=== PATIENT | female | born 1975 ===

== ENCOUNTER 2018-01-30 05:11 | Inpatient (IN) | payer OTHER ==
[~2018-01-30] VITALS: Ht 177.8 cm; Wt 106.6 kg
[2018-01-30] VITALS (14 sets, daily range): BP systolic 101–153; BP diastolic 55–77
[2018-01-30] MEDS ORDERED: NORCO 10-325 T1 EACH ORAL (05:54)
[2018-01-30] MEDS ORDERED: CYCLOBENZAPRINE10 MG ORAL (05:54)
[2018-01-30] MEDS ORDERED: GABAPENTIN300 MG ORAL (05:54)
[2018-01-30] MEDS ORDERED: LR 1000ml 1,000 ML IVLG SCH (06:21)
--- NOTE | 2018-01-30 06:23 | Anethesia Preoperative Eval ---
Anesthesia Pre-op PMH/ROS General Date of Evaluation: Jan 30, 2018 Time of Evaluation: 07:26 Anesthesiologist: Queenie ASA Score: ASA 2 Mallampati Score Class I : Soft palate, uvula, fauces, pillars visible Class II: Soft palate, uvula, fauces visible Class III: Soft palate, base of uvula visible Class IV: Only hard plate visible Mallampati Classification: Class II Surgeon: Newton Diagnosis: Back Pain Surgical Procedure: TLIF L5-S1 Anesthesia History: none Family History: no anesthesia problems Allergies: Coded Allergies: No Known Allergies (Unverified , 01/28/18) Medications: see eMAR Patient NPO?: Yes NPO Date: Jan 29, 2018 NPO Time: 2129 Past Medical History Gastrointestinal/Genitourinary: Reports: GERD Other: obesity - BMI 36 PSxH Narrative: C/S, Gastric Sleeve Anesthesia Pre-op Phys. Exam Physician Exam Vital Signs Date Time Temp Pulse Resp B/P (MAP) Pulse Ox O2 Delivery O2 Flow Rate FiO2 01/30/18 05:55 Room Air 01/30/18 06:28 97.2 59 20 104/55 (71) 100 Last Vital Signs Date Time Temp Pulse Resp B/P (MAP) Pulse Ox O2 Delivery O2 Flow Rate FiO2 01/30/18 05:55 Room Air Constitutional: NAD Neurologic: CN 2-12 intact Cardiovascular: RRR Respiratory: CTA Gastrointestinal: S/NT/ND Airway Exam Mallampati Score: Class II MO: full ROM: full Teeth: intact Anesthesia Pre-op A/P Labs Urine Test Test 01/30/18 05:25 Urine HCG, Qualitative Negative (NEGATIVE) Risk Assessment & Plan Assessment: ASA 2 Plan: GA, SED, GlideScope Go Status Change Before Surgery: No Pre-Antibiotics Dru Gram Vancomycin IV Given Within 1 Hr of Incision: Yes Time Given: 07:41 Juan Jerome MD Jan 30, 2018 06:23
[2018-01-30] MEDS ORDERED: Pantoprazole Inj ONE (06:28)
[2018-01-30] MEDS ORDERED: Vancomycin 1gm inj IVPB ONE ×2 (06:28→10:07)
[2018-01-30] MEDS ORDERED: Zemuron 50mg/5ml Inj IV ONE (06:29)
[2018-01-30] MEDS ORDERED: Atropine Sulfate 0.4mg/ml inj IVP PRN (06:30)
[2018-01-30] MEDS ORDERED: Hydromorphone 0.5mg/0.5ml inj IVP PRN (06:30)
[2018-01-30] MEDS ORDERED: oxyCODONE HCL/Acetaminophen 5/325mg ORAL PRN (06:30)
[2018-01-30] MEDS ORDERED: Meperidine 50mg/ml Inj(FOR RIGORS ONLY) IVP PRN (06:30)
[2018-01-30] MEDS ORDERED: HYDROcodone/Acetamin 7.5/325 tab ORAL PRN (06:30)
[2018-01-30] MEDS ORDERED: Ketorolac 30mg Inj IV PRN ×2 (06:30)
[2018-01-30] MEDS ORDERED: Norco 5mg/325mg tab ORAL PRN ×2 (06:30→13:00)
[2018-01-30] MEDS ORDERED: Midazolam 2mg/2ml Inj IVP PRN (06:30)
[2018-01-30] MEDS ORDERED: DiphenhydrAMINE 50mg/ml Inj IVP PRN (06:30)
[2018-01-30] MEDS ORDERED: fentaNYL 100 mcg/2 mL IV PRN (06:30)
[2018-01-30] MEDS ORDERED: Metoclopramide 10mg/2ml Inj IVP PRN (06:30)
[2018-01-30] MEDS ORDERED: LORazepam Inj 2mg/ml 1ml IV PRN (06:30)
[2018-01-30] MEDS ORDERED: Acetaminophen (Non formulary) 100 ML IV ONE (06:30)
[2018-01-30] MEDS ORDERED: Lidocaine 1% MPF 10mg/ml 5ml ONE ×2 (06:54→11:22)
[2018-01-30] MEDS ORDERED: Dexamethasone 4mg/ml vial ONE ×2 (06:54→08:09)
[2018-01-30] MEDS ORDERED: Sodium Chloride 10ml vial INJ ONE (06:54)
[2018-01-30] MEDS ORDERED: Lidocaine 1% Plain 30 ml INJ ONE ×2 (06:57→09:24)
[2018-01-30] MEDS ORDERED: Propofol 1,000mg/ 100ml btl IV ONE (07:00)
[2018-01-30] MEDS ORDERED: fentaNYL 100 mcg/2 mL IV ONE ×3 (07:02→11:10)
[2018-01-30] MEDS ORDERED: Heparin 5000 units/ml inj ONE (07:04)
[2018-01-30] MEDS ORDERED: Bacitracin Oint 15gm Tube TOPIC ONE (07:04)
[2018-01-30] MEDS ORDERED: Heparin 1000 units/ml 1ml Vial ONE (07:04)
[2018-01-30] MEDS ORDERED: Thrombin 5000 units spray kit TOPIC ONE (07:04)
[2018-01-30] MEDS ORDERED: Gelfoam Size TOPIC ONE (07:05)
[2018-01-30] MEDS ORDERED: Thrombin 5000 units TOPIC ONE ×2 (07:05→07:06)
[2018-01-30] MEDS ORDERED: Bupivacaine w/Epi 0.5% 30ml Vial INJ ONE ×2 (07:05→07:06)
[2018-01-30] MEDS ORDERED: Bacitracin 50000 Units Vial ONE ×2 (07:05→10:07)
[2018-01-30] MEDS ORDERED: Gelfoam Absorbable 1gm powder pkt TOPIC ONE (07:05)
--- NOTE | 2018-01-30 07:11 | Immediate Post-Op Evaluation ---
Immediate Post-Op Evalulation Immediate Post-Op Evalulation Procedure: TLIF L5-S1 Date of Evaluation: Jan 30, 2018 Time of Evaluation: 12:55 IV Fluids: 900 LR Blood Products: 0 Estimated Blood Loss: 100 Urinary Output: 150 Blood Pressure Systolic: 109 Blood Pressure Diastolic: 62 Pulse Rate: 69 Respiratory Rate: 16 O2 Sat by Pulse Oximetry: 96 Temperature (Fahrenheit): 97.1 Pain Score (1-10): 2 Nausea: No Vomiting: No Complications 0 Patient Status: awake, reacts, patent, extubated, none Hydration Status: adequate Dru Gram Vancomycin IV Given Within 1 Hr of Incision: Yes Time Given: 07:41 Juan Jerome MD Jan 30, 2018 07:11
[2018-01-30] MEDS ORDERED: LR 1000ml ONE (07:26)
[2018-01-30] MEDS ORDERED: Sterile Water Irrig 1000ml IRRIG ONE (07:26)
[2018-01-30] MEDS ORDERED: NS Irrig 1000ml ONE (07:26)
[2018-01-30] MEDS ORDERED: Vancomycin 1 GM in D5W 275 ML IVPB ONE (07:30)
[2018-01-30] MEDS ORDERED: Pantoprazole Inj IVP ONE (07:30)
--- NOTE | 2018-01-30 07:40 | Pre-Procedure Note/Attestation ---
Pre-Procedure Note/Attestation Complete Prior to Procedure Planned Procedure: bilateral Procedure Narrative: Posterior lumbar decompression interbody fusion and pedicle screw fixation at L5 -S1 and posterolateral arthrodesis with allograft, autograft and iliac crest bone marrow aspirate Attestation I attest that I discussed the nature of the procedure; its benefits; risks and complications; and alternatives (and the risks and benefits of such alternatives ), prior to the procedure, with the patient (or the patient's legal sales representative facility services). I attest that, if there was a reasonable possibility of needing a blood transfusion, the patient (or the patient's legal sales representative facility services) was given the [facility] standardized written summary, pursuant to the Fa[place] Blood Safety Act ([place] Health and Safety Code # 1645, as amended). I attest that I re-evaluated the patient just prior to the surgery and that there has been no change in the patient's H&P, except as documented below: Destini Glez MD Jan 30, 2018 07:40
[2018-01-30] MEDS ORDERED: Neostigmine 1mg/ml 10ml Inj ONE (11:51)
[2018-01-30] MEDS ORDERED: Glycopyrrolate 0.2mg/ml 1ml Vial ONE (11:51)
[2018-01-30] MEDS ORDERED: Naloxone 0.4mg/ml Inj ONE (11:55)
--- NOTE | 2018-01-30 12:47 | Brief Operative Note ---
Immediate Post Operative Note Operative Note Chief Complaint: Severe low ack pain and radiculopathy, HNP L5-S1 Pre-op Diagnosis: 1. S/p fall with lumbar spine trauma, left knee and lower back trauma 2. Intractable low back pain and contained extruded fragment at L5-S1 3. Lack of improvement from conservative care and and interventional injections and bariatric surgery. 4. Elevated BMI Procedure: 1. Bilateral L5 hemilaminectomy, medical facetectomy and foraminotomy. 2. Preparation of disc space with radical L5-S1 discectomy and insertion of 13 mm Renovis 3D titanium cage 3. Billateral pedicle screw insertions at L5 and S1, 6.0 x 50 mm and 6.0 by 40 mm, and 40 mm rods. 4. posterolateral arthrodesis L5-S1 basilaterally 5. [place] of local bone from lamina for grafting 6. Osteotomy of inferior L5 facet on left side and transforaminal approach for decompression of nerve root at L5-S1 6. Right iliac crest bone marrow aspiration for grafting 7. Intra-op neuromonitoring and pedicle screw stim 8. Intra-op use, supervision and interpretation of fluoroscopy for instrumentation and localization of spine. 9. Neurolysis of L5 roots with microsurgical technique. 10. Modifier 22 for difficulty of the case due to increased depth of the surgical closure and body habitus with BMI 34. 11. Plastic surgical closure of a 12 cm lumbar wound Post-op Diagnosis: same as pre-op Findings: consistent w/pre-op dx studies Surgeon: Destini Glez MD Senior Geotechnical Engineer: Sampson Nunn MD Anesthesiologist: Dr. Cassidy RENTERIA Anesthesia: general Specimen: yes - disc Complications: none Condition: stable Fluids: 800 cc Estimated Blood Loss: volume - 100 cc Drains: hemovac Implant(s) used?: Yes - U & I pedicle screws and rods, Renovis cage. Destini Marin MD Jan 30, 2018 12:47
[2018-01-30] MEDS ORDERED: Milk of Magnesia 30ml Ud ORAL PRN (13:00)
[2018-01-30] MEDS ORDERED: traMADol 50mg tab ORAL PRN (13:00)
[2018-01-30] MEDS ORDERED: Cyclobenzaprine 10mg Tab ORAL PRN (13:00)
--- NOTE | 2018-01-30 13:18 | General Progress Note ---
Progress Note Progress Note Post-op Neurosurgery S/ Comfortable no leg pain O/ Vs. Last 24 Hour Vital Signs Date Time Temp Pulse Resp B/P (MAP) Pulse Ox O2 Delivery O2 Flow Rate FiO2 01/30/18 13:00 66 16 114/66 96 Simple Mask 10 01/30/18 12:54 75 16 101/58 96 Simple Mask 10 01/30/18 12:49 75 16 101/58 96 Simple Mask 10 01/30/18 12:44 97.1 75 16 101/58 96 Simple Mask 10 01/30/18 12:44 69 16 96 01/30/18 06:28 97.2 59 20 104/55 (71) 100 01/30/18 05:55 Room Air Alert comfortable Moves all extremities well Dresssing dry Minimal output from HV Admit to floor after cleared by recovery family updated Destini Glez MD Jan 30, 2018 13:18
[2018-01-30] MEDS: NS w/KCl 20mEq 1,000 ML IV SCH (14:48)
[2018-01-30] MEDS ORDERED: HYDROmorphone 1mg/ml Carpuject IVP PRN (15:30)
[2018-01-30] MEDS ORDERED: Chloraseptic Spray 20mL Bottle ORAL PRN (15:30)
[2018-01-30] MEDS: HYDROcodone/Acetamin 7.5/325 tab ORAL PRN (15:43)
[2018-01-30] MEDS: Docusate 100mg cap ORAL SCH (17:39)
[2018-01-30] MEDS: Docusate Sod/Senna tab ORAL SCH (17:39)
--- NOTE | 2018-01-30 18:15 | Operative Note - Dictated ---
DATE OF OPERATION: 01/30/2018 PREOPERATIVE DIAGNOSES: 1. Severe intractable back pain and radiculopathy with large herniated extruded disc status post traumatic injury to the lumbar spine, status post fall with left elbow, left knee, and lumbar spine trauma. 2. Intractable severe low back pain and radiculopathy with 6 mm extruded contained disc at L5-S1 level. 3. Lack of improvement from conservative measures, medical therapy, and epidural injection. 4. Status post bariatric surgery with significant weight loss, however, with persistence of mechanical axial low back pain and discogenic back pain. 5. High BMI. BMI of 34. POSTOPERATIVE DIAGNOSES: 1. Severe intractable back pain and radiculopathy with large herniated extruded disc at status post traumatic injury to the lumbar spine, status post fall with left elbow, left knee, and lumbar spine trauma. 2. Intractable severe low back pain and radiculopathy with 6 mm extruded contained disc at L5-S1 level. 3. Lack of improvement from conservative measures, medical therapy, and epidural injection. 4. Status post bariatric surgery with significant weight loss, however, with persistence of mechanical axial low back pain and discogenic back pain. 5. High BMI. BMI of 34. PROCEDURES: 1. Bilateral L5 hemilaminectomy, medial facetectomy, and foraminotomy. 2. Inferior osteotomy and facetectomy of the left L5 facet joint with transforaminal approach to the lumbar spine with decompression of nerve root. 3. Preparation of disk space and radical diskectomy L5-S1 level, insertion of biomechanical device, 3D titanium cage, 13 mm Renovis. 4. Transpedicular fixation at L5 and S1 levels bilaterally using 6 x 50 mm and 6 x 40 mm screws and 40 mm rods. 5. Posterior lateral arthrodesis at L5-S1 level using autologous bone graft, bone marrow aspirate from the iliac crest and Zuly. 6. [place] of local bone from lamina for grafting. 7. Aspiration of bone marrow from the right iliac crest through a separate fascial incision. 8. Intraoperative neuro monitoring and pedicle screw stimulation, somatosensory evoked potential and dermatomal monitoring, free run EMG monitoring. 9. Intraoperative use, interpretation, and supervision of fluoroscopy for localization of spine and instrumentation. 10. Neurolysis of the L5 nerve roots bilaterally using microsurgical technique. 11. Plastic surgical closure of a 12 cm lumbar wound with multilayer closure including subcuticular and subdermal closure. 12. Modifier 22 due to difficulty of the case secondary to the increased depth of incision and increased difficulty due to the patient's body habitus, BMI 34. 13. Application of epidural fat graft to L5-S1 level, bilaterally. SURGEON: Destini Glez M.D. CONFLICTS ANALYST SURGEON: Sampson Nunn M.D. ANESTHESIOLOGIST: Juan Jerome M.D. ANESTHESIA TYPE: General endotracheal anesthesia. EBL: 100 mL. IV FLUIDS: 800 mL. URINE OUTPUT: 300 mL. SPECIMEN: Disc. INDICATION: The patient is a pleasant woman with intractable back pain and radiculopathy from a fall in August of 2012. Despite a wide spectrum conservative treatments, medical therapy treatments with neuropathic pain medications and interventional pain injection and bariatric surgery with significant weight loss, she continues to have severe low back pain. Imaging studies of the lumbar spine including MRI, CT scan, and x-rays were obtained. The MRI were significant for contained 6 mm disc herniation, extruded fragment at the L5-S1 level with nerve impingement concordant with the patient's complaints. Risk of the operation include, but not limited to risk of infection, bleeding, nerve damage, paralysis, spinal fluid leakage, hardware failure/pseudoarthrosis requiring revision surgery, adjacent segment disease requiring additional treatments after the operation including physical therapy, medical therapy, interventional pain injections such as lumbar facet blocks and/or rhizotomy, additional surgical intervention for adjacent segment breakdown with extension of the fusion were all discussed with the patient along with risks of anesthesia including coma and . She signed the consent to proceed. DETAILS OF PROCEDURE: The patient was identified. She was brought into the operating room on a gurney. She underwent an uneventful endotracheal intubation. Acosta catheter was inserted. Neuro monitoring leads were attached. The patient was placed on a Hector table in prone position. Care was taken to pad all pressure points from the top of the head to the tip of the toes. Arms were well padded in the elbows, shoulders, and the wrist region. The lumbar region was pre-prepped and fluoroscopic images were obtained to localize the lumbar spine in AP and lateral views. Back was then prepped and draped in sterile fashion. Time-out was observed and the circulating nurse recited the procedure. Microscope was brought to the field. Incision was made in the midline over the L5 and S1 level. Dissection was carried down to the level of the subcutaneous fascia. The fascia was opened. The deep subcutaneous fat layer was then reached and a fat specimen was used for grafting. The fat graft was placed in antibiotic irrigation. The lumbar dorsal fascia was identified. Approximately 3 cm from the midline, two parallel paramedian incisions were made into the fascia. Intramuscular approach was then created along the multifidus and longissimus muscles to the level of the L5-S1 facet joint. The longus Vee retractors were needed to reach the facet capsule and modifier 22 will be used to denote the increased degree of difficulty due to the increased depth of the surgical corridor along with the patient's large body habitus. After exposure of the L5-S1 facets bilaterally, intraoperative fluoroscopic images were obtained to verify the correct level. The facet capsule was then removed using pituitary rongeurs. Bilateral L5 hemilaminotomy, medial facetectomy, and foraminotomies were performed. The ligamentum flavum was disconnected from the inferior and medial border. Lateral recess was fully decompressed. On the right side, the nerve root was tender with epidural veins and scars. Using a bipolar cautery, the veins were coagulated and the L5 nerve root was mobilized medially by disconnecting the epidural adhesions and the epidural veins. The S1 foramina was also widened using a Kerrison punch, and S1 nerve root was mobile at the end of the decompression. Prior to the decompression, there was evidence of significant loss of signal from the left L5, which was decreased by 50% compared to the right L5 and also the right S1, which was 50% decrease in its signal and amplitude compared to the contralateral side. Somatosensory evoked potentials remained stable throughout the case. Attention was given to the left side. The left L5 hemilaminectomy, medial facetectomy, and foraminotomy was performed. Bone was harvested from the laminectomy bilaterally for future grafting. The ligament flavum was disconnected medially and inferiorly. The S1 and L5 nerve roots were identified. The epidural adhesions and epidural veins were carefully coagulated with bipolar cautery and incised with micro scissors. This allowed mobilization of the thecal sac medially and exposure of the L5-S1 disc space. There was a large contained disc fragment underneath the posterior longitudinal ligament compressing the thecal sac and the exiting L5 and traversing S1 roots. Incision was made into the anulus using a #15 blade. Large disc fragments were removed using pituitary rongeur. The cartilaginous connection to the endplates at L5 and S1 was removed using pituitary rongeur and disc andrey and curettes. A radical diskectomy was performed. A 13 mm Renovis 3D titanium cage was then sized and packed it with autologous bone graft, bone marrow aspirate, and [place] and placed into the L5-S1 interspace under fluoroscopic guidance. A Jamshidi needle was used through a separate fascial incision to withdraw 30 mL of bone marrow from the right iliac crest. A 10 mL syringes were used to withdraw the bone marrow. Between each interval of syringe use, the Jamshidi needle was advanced to approximately 1 cm prior to the harvest of bone marrow. The bone marrow harvest track was then sealed with FloSeal. The posterolateral gutters were decorticated using high-speed drill at the L5-S1 level and packed with autologous bone graft, Zuly, and bone marrow aspirate. Transpedicular fixation was performed using 50 and 40 mm screws at L5 and S1 levels respectively using 6 mm screws. Fluoroscopic guidance was used throughout this pedicle screw insertion. Pedicle screw stimulation was performed, which showed no evidence of electrical breach. The 40 mm rods were then inserted and the cross compressor was used to compress the screw heads against the implant. The 40 mm lourdes was then secured in place with set screws and appropriate torque was used. Wound was irrigated with copious amounts of antibiotic irrigation. A Hemovac drain was placed in the left intermuscular approach cavity. The fat graft obtained from the deep subcutaneous layer was then sized and placed over the laminotomy defects bilaterally, which provided excellent coverage for the laminotomy defects. The fascial layers were closed using #0 Vicryl stitches in interrupted fashion. Subcutaneous layer was closed using 2-0 and 3-0 Vicryl stitches. Subdermal and subcuticular layers were closed using 3-0 Vicryl stitches in interrupted fashion and a watertight plastic surgical manner. The skin was dressed with Dermabond and Steri-Strips. Sterile dressing was applied to the incision and the Hemovac drain was secured to the skin using Steri-Strips as well. The patient tolerated this procedure well. She was extubated at the end of the case. Complications none. Destini Glez M.D. DR: YAW JOB#: [id number] CC: RACHAEL
[2018-01-30] MEDS: Vancomycin 1 GM in D5W 275 ML IVPB SCH (20:16)
[2018-01-31] VITALS: BP 126/71
[2018-01-31] MEDS: NS w/KCl 20mEq 1,000 ML IV SCH (01:55)
[2018-01-31 04:00] VITALS: BP 125/69
[2018-01-31 07:10] LABS: BASOPHILS % (AUTO) 0.3 % (0.0-2.0); EOSINOPHILS % (AUTO) 0.2 % (0.0-3.0); HEMATOCRIT 36.1 % (37.0-47.0); HEMOGLOBIN 12.6 G/DL (12.0-16.0); LYMPHOCYTES % (AUTO) 18.3 % (20.0-45.0); MEAN CORPUSCULAR VOLUME 91 FL (80-99); MONOCYTES % (AUTO) 5.8 % (1.0-10.0); NEUTROPHILS % (AUTO) 75.4 % (45.0-75.0); PLATELET COUNT 181 K/UL (150-450); RED BLOOD COUNT 3.99 M/UL (4.20-5.40); RED CELL DISTRIBUTION WIDTH 11.1 % (11.6-14.8); WHITE BLOOD COUNT 11.1 K/UL (4.8-10.8)
[2018-01-31 07:20] LABS: ANION GAP 6 mmol/L (5-15); BLOOD UREA NITROGEN 13 mg/dL (7-18); CALCIUM 8.4 MG/DL (8.5-10.1); CARBON DIOXIDE 28 MMOL/L (21-32); CHLORIDE 106 MMOL/L (98-107); CREATININE 0.8 MG/DL (0.55-1.30); SODIUM 140 MMOL/L (136-145)
--- NOTE | 2018-01-31 07:54 | 48 Hour Post Anesthesia Eval ---
Post Anesthesia Evaluation Procedure: TLIF L5-S1 Date of Evaluation: Jan 31, 2018 Time of Evaluation: 07:52 Blood Pressure Systolic: 126 0: 72 Pulse Rate: 76 Respiratory Rate: 20 Temperature (Fahrenheit): 97.6 O2 Sat by Pulse Oximetry: 98 Airway: patent Nausea: No Vomiting: No Pain Intensity: 2 Hydration Status: adequate Cardiopulmonary Status: stable Mental Status/LOC: patient returned to baseline Follow-up Care/Observations: n/a Post-Anesthesia Complications: none Follow-up care needed: N/A Fam Fontana MD Jan 31, 2018 07:54
[2018-01-31 08:00] VITALS: BP 117/79
[2018-01-31] MEDS: Docusate Sod/Senna tab ORAL SCH ×2 (08:18→17:52)
[2018-01-31] MEDS: Docusate 100mg cap ORAL SCH ×2 (08:18→17:52)
[2018-01-31] MEDS: HYDROcodone/Acetamin 7.5/325 tab ORAL PRN ×2 (08:18→20:46)
[2018-01-31] MEDS: Vancomycin 1 GM in D5W 275 ML IVPB SCH (10:35)
[2018-01-31 11:47] VITALS: BP 108/60
--- NOTE | 2018-01-31 11:57 | Diagnostic Imaging Report ---
Indication: Back pain Comparison: None Findings: 5 fluoroscopic views of the lumbar spine were obtained. Intraoperative imaging showing localization followed by posterior instrumented fusion of L5-S1. IMPRESSION: Intraoperative imaging
[2018-01-31] MEDS ORDERED: Tubing IV Secondary IV ONE (13:48)
[2018-01-31 16:00] VITALS: BP 100/60
--- NOTE | 2018-01-31 17:32 | General Progress Note ---
Progress Note Progress Note Neurosurgery POD #1 S/ Doing well. No leg pain. Ambulated several times. Has lumbar brace. O/ vs. Last 24 Hour Vital Signs Date Time Temp Pulse Resp B/P (MAP) Pulse Ox O2 Delivery O2 Flow Rate FiO2 01/31/18 16:00 98.4 82 18 100/60 (73) 97 01/31/18 11:47 97.9 80 18 108/60 (76) 97 01/31/18 09:00 Room Air Room Air 01/31/18 08:00 97.5 100 18 117/79 (92) 97 01/31/18 07:54 76 20 98 01/31/18 04:00 97.2 79 18 125/69 (87) 97 01/31/18 00:00 97.9 66 18 126/71 (89) 98 01/30/18 21:00 Room Air Room Air 01/30/18 20:00 98.0 69 18 153/71 (98) 97 On exam Comfortable. Incision is clean, dry and intact. HV removed at bedside and new dressing applied. Normal strength bilateral lower extremity. Minor redness at the chin. Improved Labs: Laboratory Tests Test 01/31/18 06:05 White Blood Count 11.1 K/UL (4.8-10.8) H Red Blood Count 3.99 M/UL (4.20-5.40) L Hemoglobin 12.6 G/DL (12.0-16.0) Hematocrit 36.1 % (37.0-47.0) L Mean Corpuscular Volume 91 FL (80-99) Mean Corpuscular Hemoglobin 31.6 PG (27.0-31.0) H Mean Corpuscular Hemoglobin Concent 34.9 G/DL (32.0-36.0) Red Cell Distribution Width 11.1 % (11.6-14.8) L Platelet Count 181 K/UL (150-450) Mean Platelet Volume 8.2 FL (6.5-10.1) Neutrophils (%) (Auto) 75.4 % (45.0-75.0) H Lymphocytes (%) (Auto) 18.3 % (20.0-45.0) L Monocytes (%) (Auto) 5.8 % (1.0-10.0) Eosinophils (%) (Auto) 0.2 % (0.0-3.0) Basophils (%) (Auto) 0.3 % (0.0-2.0) Sodium Level 140 MMOL/L (136-145) Potassium Level 4.0 MMOL/L (3.5-5.1) Chloride Level 106 MMOL/L (98-107) Carbon Dioxide Level 28 MMOL/L (21-32) Anion Gap 6 mmol/L (5-15) Blood Urea Nitrogen 13 mg/dL (7-18) Creatinine 0.8 MG/DL (0.55-1.30) Estimat Glomerular Filtration Rate > 60 mL/min (>60) Glucose Level 94 MG/DL (74-106) Calcium Level 8.4 MG/DL (8.5-10.1) L Magnesium Level 2.1 MG/DL (1.8-2.4) doing well PT d/c planing. Destini Glez MD Jan 31, 2018 17:32
[2018-01-31 20:00] VITALS: BP 86/56
[2018-02-01 00:35] VITALS: BP 105/54
[2018-02-01 05:00] VITALS: BP 91/58
[2018-02-01 08:00] VITALS: BP 108/56
[2018-02-01] MEDS: Docusate 100mg cap ORAL SCH (09:03)
[2018-02-01] MEDS: HYDROcodone/Acetamin 7.5/325 tab ORAL PRN (09:04)
[2018-02-01] MEDS: Docusate Sod/Senna tab ORAL SCH (09:04)
[2018-02-01 12:00] VITALS: BP 110/60
[2018-02-01] MEDS ORDERED: NORCO 10-325 T1 EACH ORAL (12:07)
--- NOTE | 2018-02-04 12:36 | Discharge Summary ---
Discharge Summary Hospital Course Date of Admission Jan 30, 2018 at 05:11 Date of Discharge Feb 01, 2018 at 12:35 Admitting Diagnosis Severe low back pain and radiculopathy, herniated nucleus pulposus L5-S1 Reason for Hospitalization: ELECTIVE SURGERY HPI Magdalena Umana is a 42 year old female who was admitted on Jan 30, 2018 at 05:11 for severe low back pain and radiculopathy, herniated nucleus pulposus L5-S1. Patient was admitted for elective surgery. Procedures s/p 01/30/[address] Carroll Glez 1. Bilateral L5 hemilaminectomy, medial facetectomy, and foraminotomy. 2. Inferior osteotomy and facetectomy of the left L5 facet joint with transforaminal approach to the lumbar spine with decompression of nerve root. 3. Preparation of disk space and radical diskectomy L5-S1 level, insertion of biomechanical device, 3D titanium cage, 13 mm Renovis. 4. Transpedicular fixation at L5 and S1 levels bilaterally using 6 x 50 mm and 6 x 40 mm screws and 40 mm rods. 5. Posterior lateral arthrodesis at L5-S1 level using autologous bone graft, bone marrow aspirate from the iliac crest and [place]. 6. [place] of local bone from lamina for grafting. 7. Aspiration of bone marrow from the right iliac crest through a separate fascial incision. 8. Intraoperative neuro monitoring and pedicle screw stimulation, somatosensory evoked potential and dermatomal monitoring, free run EMG monitoring. 9. Intraoperative use, interpretation, and supervision of fluoroscopy for localization of spine and instrumentation. 10. Neurolysis of the L5 nerve roots bilaterally using microsurgical technique. 11. Plastic surgical closure of a 12 cm lumbar wound with multilayer closure including subcuticular and subdermal closure. 12. Modifier 22 due to difficulty of the case secondary to the increased depth of incision and increased difficulty due to the patient's body habitus, BMI 34. 13. Application of epidural fat graft to L5-S1 level, bilaterally. Hospital Course status post surgery course of recovery uneventful initially IV fluids s/p perioperative antibiotics neurovascular status closely monitored, stable incision clean dry and intact Hemovac drain removed by surgeon dressing changed by surgeon pain management addressed ; pain controlled hemodynamically stable ambulated with assistive device with PT /OT lumbar brace on fall precautions maintained; safe for ambulation tolerated diet , IV fluids discontinued GI prophylaxis provided antiemetics were on board as needed voided freely bowel regimen instituted patient was stable for discharge discharge instructions provided follow up with surgeon as advised front wheel walker and raised toilet seat provided FINAL DIAGNOSES 1. Severe intractable back pain and radiculopathy with large herniated extruded disc at status post traumatic injury to the lumbar spine, status post fall with left elbow, left knee, and lumbar spine trauma. 2. Intractable severe low back pain and radiculopathy with 6 mm extruded contained disc at L5-S1 level. 3. Lack of improvement from conservative measures, medical therapy, and epidural injection. 4. Status post bariatric surgery with significant weight loss, however, with persistence of mechanical axial low back pain and discogenic back pain. 5. Obesity , BMI of 34. 6. s/p TLIF L5-S1 Discharge Medications Continued Medications: Hydrocodone Bit/Acetaminophen 10-325* ([place] 10-325*) 1 Each Tablet 1 TAB ORAL Q6H PRN for For Pain, #30 TAB 0 Refills (This prescription has been renewed) PRN PAIN Discharge Condition Upon Discharge: stable Discharge Disposition Patient was discharged to Home (01) Discharge Instructions Discharge Instructions Special Instructions I have been assigned to complete a D/C Summary on this account. I was not involved in the patient management Belkis Linda NP Feb 04, 2018 12:36
== END 2018-02-01 12:35 | disposition home or self-care (01) | DRG 460 ==
LOC: SDSOVERFLO 05:11 → 3E 14:20
PROC: 07DR3ZZ Extraction of Iliac Bone Marrow, Percutaneous Approach (ICD-10-PCS; principal; 2018-01-30 07:30)
PROC: 0SG30AJ Fusion of Lumbosacral Joint with Interbody Fusion Device, Posterior Approach, Anterior Column, Open Approach (ICD-10-PCS; principal; 2018-01-30 07:30)
PROC: 0SB40ZZ Excision of Lumbosacral Disc, Open Approach (ICD-10-PCS; principal; 2018-01-30 07:30)
PROC: 01NB0ZZ Release Lumbar Nerve, Open Approach (ICD-10-PCS; principal; 2018-01-30 07:30)
DX: M51.16 Intervertebral disc disorders with radiculopathy, lumbar region (principal); M51.17 Intervertebral disc disorders with radiculopathy, lumbosacral region; Z91.81 History of falling; M25.50 Pain in unspecified joint; Z98.84 Bariatric surgery status; E66.01 Morbid (severe) obesity due to excess calories; Z68.34 Body mass index [BMI] 34.0-34.9, adult
CPT/HCPCS: 36415; 72020; 76001; 80048; 81025; 83735; 85025; 86850; 86900; 86901; 87081; 94003; 94150; C9399; J2405; J2710